=== PATIENT | female | born 1990 | race Caucasian/White ===

== ENCOUNTER 2016-10-16 10:43 | Emergency (ER) | payer OTHER ==
[~2016-10-16] VITALS: Ht 157.5 cm; Wt 113.6 kg
[~2016-10-16 10:43] MED LIST: CITALOPRAM HBR20 MG PO; COLACE100 MG PO; DICYCLOMINE HCL20 MG PO; K-DUR20 MEQ PO; LORTAB 5-325 M1 EACH PO; MOTRIN600 MG PO; NAPROSYN500 MG PO; NAPROXEN500 MG PO; OXCARBAZEPINE300 MG PO; PANTOPRAZOLE SO40 MG PO; SEROQUEL300 MG PO; SERTRALINE HCL100 MG PO; TRAZODONE HCL100 MG PO; TRAZODONE PO; ULTRAM50 MG PO; XIFAXAN550 MG PO
[2016-10-16 13:50] LABS: HEMATOCRIT 30.4 % (36.0-46.0); MCH 23.2 PG (29.0-34.0); MCHC 29.9 G/DL (30.0-36.0); MCV 77.4 FL (83-99); MEAN PLAT.VOLUME 9.5 uM^3 (9.5-12.4); PLATELET COUNT 322 K/uL (156-360); RBC DIS.WIDTH-CV 16.5 % (11.8-14.6); RBC DIS.WIDTH-SD 46.7 % (39-53); RED BLOOD COUNT 3.93 M/uL (3.80-5.20)
[2016-10-16 13:56] LABS: PROTHROMBIN TIME 11.1 SEC (10.2-12.9)
[2016-10-16 13:58] LABS: CHLORIDE 106 mEq/L (99-109); POTASSIUM 3.9 mEq/L (3.7-5.4); PTT 28.7 SEC (25-37); SODIUM 138 mEq/L (136-147)
[2016-10-16 14:00] LABS: GLUCOSE 104 mg/dL (70-99)
[2016-10-16 14:01] LABS: ANION GAP 8 MEQ/L (2-14)
[2016-10-16 14:04] LABS: GFR ESTIMATE (CALCULATED) > 59 mL/min/; UREA NITROGEN (BUN) 11 mg/dL (9-23)
[2016-10-16] MEDS ORDERED: XARELTO1 EACH PO (14:06)
[2016-10-16] MEDS ORDERED: ULTRAM50 MG PO (14:06)
[2016-10-16 14:33] VITALS: BP 111/82
== END 2016-10-16 14:34 | disposition home or self-care (01) ==
LOC: EME 10:43
PROVIDERS: Physician Assistant
DX: I82.431 Acute embolism and thrombosis of right popliteal vein (principal); V49.9XXA Car occupant (driver) (passenger) injured in unspecified traffic accident, initial encounter; F17.200 Nicotine dependence, unspecified, uncomplicated; Z88.6 Allergy status to analgesic agent
CPT/HCPCS: 73590; 80048; 85027; 85610; 85730; 93971; 99281; 99284; J3010

== ENCOUNTER 2016-12-19 14:07 | Inpatient (IN) | payer OTHER ==
[~2016-12-19] VITALS: Ht 157.5 cm; Wt 103.5 kg
[~2016-12-19 14:07] MED LIST changes: +XARELTO1 EACH PO
[2016-12-19 16:09] LABS: HEMATOCRIT 21.9 % (36.0-46.0); MCH 18.7 PG (29.0-34.0); MCHC 26.5 G/DL (30.0-36.0); MCV 70.6 FL (83-99); MEAN PLAT.VOLUME 9.3 uM^3 (9.5-12.4); NRBC (%) 0.7 /100 WBC (0-0); PLATELET COUNT 293 K/uL (156-360); RBC DIS.WIDTH-CV 18.5 % (11.8-14.6); RBC DIS.WIDTH-SD 46.8 % (39-53); WHITE BLOOD COUNT 8.2 K/uL (4.1-10.2)
[2016-12-19 16:10] LABS: PROTHROMBIN TIME 11.3 SEC (10.2-12.9)
[2016-12-19 16:13] LABS: PTT 27.1 SEC (25-37)
[2016-12-19 16:14] LABS: CHLORIDE 108 mEq/L (99-109); POTASSIUM 3.5 mEq/L (3.7-5.4); SODIUM 139 mEq/L (136-147)
[2016-12-19 16:16] LABS: GLUCOSE 113 mg/dL (70-99)
[2016-12-19 16:17] LABS: ANION GAP 8 MEQ/L (2-14)
[2016-12-19 16:18] LABS: TOTAL BILIRUBIN 0.3 mg/dL (0.0-1.0)
[2016-12-19 16:19] LABS: ALKALINE PHOSPHATASE 95 IU/L (3-129)
[2016-12-19 16:20] LABS: GFR ESTIMATE (CALCULATED) > 59 mL/min/
[2016-12-19 16:21] LABS: UREA NITROGEN (BUN) 8 mg/dL (9-23)
[2016-12-19 16:29] LABS: QUANTITATIVE HCG < 4.0 MIU/ML
[2016-12-19 17:01] LABS: EOSINOPHIL COUNT 0.5 K/uL (0-0.3); HEMATOCRIT 21.8 % (36.0-46.0); IMMATURE GRANULOCYTE (%) 0.9 % (0.0-0.7); IMMATURE GRANULOCYTE COUNT 0.1 K/uL; INSTRUMENT ABS NEUTROPHIL CT 4.2 K/uL; LYMPHOCYTE COUNT 2.5 K/uL (1.0-2.8); MCH 18.9 PG (29.0-34.0); MCHC 26.6 G/DL (30.0-36.0); MONOCYTE (%) 5.7 % (3-12); MONOCYTE COUNT 0.4 K/uL (0-0.8); NEUTROPHIL (%) 55.4 % (45-76); NEUTROPHIL COUNT 4.2 K/uL (1.8-6.4); NRBC (%) 0.5 /100 WBC (0-0); PLATELET COUNT 290 K/uL (156-360); RBC DIS.WIDTH-CV 18.4 % (11.8-14.6); RBC DIS.WIDTH-SD 46.1 % (39-53); RED BLOOD COUNT 3.07 M/uL (3.80-5.20); WHITE BLOOD COUNT 7.7 K/uL (4.1-10.2)
[2016-12-19] MEDS ORDERED: VENTOLIN HFA18 GM IH (17:37)
[2016-12-19 19:38] VITALS: BP 110/72
[2016-12-19 19:55] VITALS: BP 121/75
[2016-12-19 20:40] VITALS: BP 116/56
[2016-12-19 21:15] VITALS: BP 124/68
[2016-12-19 23:30] VITALS: BP 114/57
[2016-12-20] VITALS (9 sets, daily range): BP systolic 98–1122; BP diastolic 52–64
[2016-12-20 05:46] LABS: MCV 74.7 FL (83-99)
[2016-12-21 05:24] VITALS: BP 107/55
[2016-12-21 07:21] LABS: PROTHROMBIN TIME 11.5 SEC (10.2-12.9)
[2016-12-21 07:23] LABS: PTT 68.4 SEC (25-37)
[2016-12-21 07:34] LABS: MCH 20.6 PG (29.0-34.0); MCHC 27.9 G/DL (30.0-36.0); MCV 74.1 FL (83-99); MEAN PLAT.VOLUME 9.7 uM^3 (9.5-12.4); NRBC (%) 0.5 /100 WBC (0-0); PLATELET COUNT 301 K/uL (156-360); RBC DIS.WIDTH-CV 19.3 % (11.8-14.6); RBC DIS.WIDTH-SD 51.7 % (39-53); WHITE BLOOD COUNT 8.8 K/uL (4.1-10.2)
[2016-12-21 07:38] LABS: ANION GAP 9 MEQ/L (2-14); CHLORIDE 106 MEQ/L (99-109); GFR ESTIMATE (CALCULATED) > 59 mL/min/; GLUCOSE 117 mg/dL (70-99); SAMPLE HEMOLYSIS CHECK 0; SAMPLE ICTERIC CHECK 0; SAMPLE LIPEMIA CHECK 0; SODIUM 139 MEQ/L (136-147); UREA NITROGEN (BUN) 14 mg/dL (9-23)
[2016-12-21 07:41] LABS: POTASSIUM 4.3 MEQ/L (3.7-5.4)
[2016-12-21 07:51] LABS: RED BLOOD COUNT 3.78 M/uL (3.80-5.20)
[2016-12-21 09:00] VITALS: BP 97/54
[2016-12-21 12:00] VITALS: BP 99/52
[2016-12-21 18:15] VITALS: BP 117/54
[2016-12-21 18:41] VITALS: BP 113/50
[2016-12-21 23:15] VITALS: BP 111/59
[2016-12-22 04:15] VITALS: BP 100/52
[2016-12-22 07:29] LABS: HEMATOCRIT 32.2 % (36.0-46.0); MCH 21.5 PG (29.0-34.0); MCHC 28.6 G/DL (30.0-36.0); MCV 75.2 FL (83-99); NRBC (%) 0.2 /100 WBC (0-0); PLATELET COUNT 337 K/uL (156-360); RBC DIS.WIDTH-CV 19.9 % (11.8-14.6); RBC DIS.WIDTH-SD 53.2 % (39-53); RED BLOOD COUNT 4.28 M/uL (3.80-5.20); WHITE BLOOD COUNT 9.3 K/uL (4.1-10.2)
[2016-12-22 07:32] LABS: INTER. NORMALIZED RATIO 1.2; PROTHROMBIN TIME 12.7 SEC (10.2-12.9)
[2016-12-22 07:35] LABS: PTT 33.5 SEC (25-37)
[2016-12-22 07:51] VITALS: BP 109/61
[2016-12-22 07:52] LABS: ANION GAP 10 MEQ/L (2-14); CHLORIDE 105 MEQ/L (99-109); GFR ESTIMATE (CALCULATED) > 59 mL/min/; GLUCOSE 103 mg/dL (70-99); POTASSIUM 4.4 MEQ/L (3.7-5.4); SAMPLE HEMOLYSIS CHECK 0; SAMPLE ICTERIC CHECK 0; SAMPLE LIPEMIA CHECK 0; SODIUM 138 MEQ/L (136-147); UREA NITROGEN (BUN) 11 mg/dL (9-23)
[2016-12-22] MEDS ORDERED: ELIQUIS5 MG PO (08:19)
[2016-12-22] MEDS ORDERED: FEOSOL325 MG PO (08:33)
== END 2016-12-22 13:10 | disposition home or self-care (01) | DRG 176 ==
LOC: EME 14:07 → 4EAST 18:06 → EDOF 18:06 → ENRESERV 18:07 → 4EAST 20:50
PROVIDERS: Emergency Medicine; Hospitalist
PROC: 30233N1 Transfusion of Nonautologous Red Blood Cells into Peripheral Vein, Percutaneous Approach (ICD-10-PCS; principal; 2016-12-19)
DX: I26.99 Other pulmonary embolism without acute cor pulmonale (principal); I82.403 Acute embolism and thrombosis of unspecified deep veins of lower extremity, bilateral; D64.9 Anemia, unspecified; N92.0 Excessive and frequent menstruation with regular cycle; N92.4 Excessive bleeding in the premenopausal period; N93.8 Other specified abnormal uterine and vaginal bleeding; N84.0 Polyp of corpus uteri; E87.6 Hypokalemia; T45.516A Underdosing of anticoagulants, initial encounter; Z91.128 Patient's intentional underdosing of medication regimen for other reason; E66.01 Morbid (severe) obesity due to excess calories; Z68.41 Body mass index [BMI] 40.0-44.9, adult; G89.4 Chronic pain syndrome; F31.9 Bipolar disorder, unspecified; F41.9 Anxiety disorder, unspecified; F17.210 Nicotine dependence, cigarettes, uncomplicated; Z86.711 Personal history of pulmonary embolism; Z86.718 Personal history of other venous thrombosis and embolism
CPT/HCPCS: 71275; 74176; 80048; 80053; 83605; 83690; 84702; 85014; 85018; 85025; 85027; 85610; 85730; 86850; 86880; 86900; 86901; 86920; 93306; 94640; 94640 76; 99202; 99281; 99285; J1940; J7030; P9016